=== PATIENT | female | born 1970 | race Two or more races ===

== ENCOUNTER 2018-07-22 15:46 | Emergency (ER) | payer OTHER ==
[~2018-07-22] VITALS: Ht 154.9 cm; Wt 96.6 kg
[2018-07-22] MEDS ORDERED: KETOROLAC TROMETH 60MG/2ML VIAL IM ONE (21:15)
[2018-07-22] MEDS ORDERED: diphenhdrAMINE HCL 50 MG/1 ML VL IM ONE (21:15)
[2018-07-22 21:31] VITALS: BP 133/80
== END 2018-07-22 22:04 | disposition home or self-care (01) ==
LOC: ER 15:46
DX: S09.8XXA Other specified injuries of head, initial encounter (principal); W50.0XXA Accidental hit or strike by another person, initial encounter; Y93.89 Activity, other specified; Y92.218 Other school as the place of occurrence of the external cause; Y99.8 Other external cause status
CPT/HCPCS: 70450; 96372; 99284; J1200; J1885